=== PATIENT | female | born 1950 | race Caucasian/White ===

== ENCOUNTER 2017-06-05 13:24 | Emergency (ER) | payer MEDICARE, SELFPAY ==
[2017-06-05 13:25] VITALS: BP 161/86; PULSE 89; RESP 16; TEMP 36.7; O2SAT 96; BMI 40.9
--- NOTE | 2017-06-05 14:06 | ED.VISSUMM ---
- ER Visit Summary Date of Service: 06/05/17 Chief Complaint: Upper quadrant and lateral abdominal pain for months History of Present Illness: The patient is a 67 F had right upper quadrant and lateral abdominal pain since . She denies any falls or trauma. She has had an extensive outpatient workup with [facility] in which she states the right upper quadrant ultrasound, CAT scan and HIDA scan all were negative. She does not have any food intolerances. She has not been having any nausea, vomiting or diarrhea. No dysuria hematuria. No fever or drastic weight change. No chest pain. No shortness of breath. No pleurisy. She has not seen any rashes. The pain is constant the last 2+ months. Nothing specifically makes it better or worse. No change with movement. Physical Examination: Appearing older female. Vital signs are stable afebrile. Pulse ox 96% on room air no signs of hypoxia. HEENT exam unremarkable. Neck nontender. No lymphadenopathy. Lungs clear to auscultation bilaterally. Heart regular rate and rhythm no murmur. Abdomen is soft nondistended normal bowel sounds no peritoneal signs. She has mild tenderness to the right lateral abdomen. There is no ecchymosis or bruising. No rash. No shingles. No hernias or masses. The ribs specifically are not tender. There is no Gann sign. There is no McBurney's point tenderness. Normal bowel sounds. No signs of junction. She is moving all 4 extremities. Neurovascular intact. Calves without edema or cords. Neurologically she is awake alert with no focal deficits. Back exam is nontender. Test Results: Normal. White count of 9. H&H 12 and 38. BMP unremarkable. Gap of 10. Normal creatinine. Liver enzymes normal. Chest x-ray shows no acute abnormality normal cardiac silhouette. No rib injuries. No pleural effusions. Emergency Department Course and Treatment: Exam at 1529 shows no change in no acute abnormality. Patient I discussed all her test. She will be discharged home for further evaluation. Medication Treatment Plan: [] Disposition: discharge Impression: Acute on chronic right sided flank pain of uncertain etiology This note was generated with [employer] dictation software. It may contain incorrect words, spelling, and punctuation that were not noted in review of the chart prior to signing ED Disposition - Plan for ED Patient: Chief Complaint: Abd Pain Referrals: Man Garcia [Primary Care Provider] -
[2017-06-05 14:25] LABS: Absolute Lymphocyte Count 2.89 X10^3/ul (0.83-4.51); Absolute Neutrophil Count 5.3 X10^3/uL (2.0-7.7); Basophil# 0.03 X10^3/uL; Basophil% 0.3 % (0-1); Eosinophil# 0.25 X10^3/uL; Eosinophils% 2.7 % (0-5); Hematocrit 38.3 % (37-47); Hemoglobin 12.4 g/dl (12.0-15.0); Lymphocyte # 2.89 X10^3/ul (4.0); Lymphocyte % 31.2 % (19-41); Mean Corp Hgb Conc 32.4 g/gl (32-36); Mean Corpuscular Hgb 30.8 pg (27.0-32.0); Mean Corpuscular Volume 95.3 fL (81-99); Mean Platelet Vol. 10.8 fl (6.2-12.0); Monocyte# 0.78 X10^3/uL; Monocyte% 8.4 % (0-10); Neutrophil # 5.31 X10^3/uL (2.7-7.7); Neutrophil % 57.3 % (47-70); POSITIVE COUNT NO; POSITIVE DIFFERENTIAL NO; POSITIVE MORPHOLOGY NO; Platelet Count 258 K/mm3 (150-450); RBC Distribution Width CV 13.5 % (11.6-14.6); RBC Distribution Width SD 46.7 fl (35.1-43.9); Red Blood Count 4.02 M/mm3 (4.2-5.4); White Blood Count 9.3 K/mm3 (4.4-11.0)
--- NOTE | 2017-06-05 14:25 | RAD_ITS ---
STUDY: X-RAY CHEST REASON FOR EXAM: Female, 67 years old. Right lower chest pain. TECHNIQUE: PA and lateral views of the chest. COMPARISON: None. FINDINGS: The patient is status post left mastectomy and left axillary node dissection. The lungs are clear and expanded. Scattered calcified granulomas. There is no demonstrated pleural abnormality. Normal size heart. Normal mediastinum and kylah. Normal visualized pulmonary arteries. There is atherosclerotic tortuosity of the aortic arch and descending thoracic aorta. There are diffuse degenerative changes of the visualized thoracic spine. Normal visualized ribs, clavicles, and shoulders. There is no demonstrated abnormality of the visualized soft tissue structures of the upper abdomen. RAD/Chest PA and Lateral IMPRESSION: No acute abnormality is seen. Electronically Signed: Jones Iqbal MD at 14:53 EST Tel [phone], Service support ,
[2017-06-05 14:40] LABS: AST(SGOT) 22 U/L (15-37); Alanine Aminotransfer ALT/SGPT 20 U/L (13-56); Albumin, Serum 3.2 g/dL (3.2-5.0); Alkaline Phosphatase 68 U/L (45-117); Anion Gap 10 (5-15); BUN 12 mg/dL (7-18); BUN/Creat Ratio 15.5 RATIO (10-20); Bilirubin, Direct 0.06 mg/dL (0.00-0.30); Calcium,Total 8.7 mg/dL (8.5-10.1); Chloride 101 mmol/L (98-107); Creatinine, Serum 0.77 mg/dL (0.55-1.02); EST Glomerular Filtration Rate 80 mL/min (>60); Est Glom Filt Rate - Afr Amer 96 mL/min (>60); Estimated Creatinine Clearance 102.23 ml/min; Globulin 4.5 g/dL (2.2-4.2); Glucose 203 mg/dL (74-106); Potassium 4.2 mmol/L (3.5-5.1); Protein, Total 7.7 g/dL (6.4-8.2); Sodium Level 137 mmol/L (136-145)
--- NOTE | 2017-06-05 15:34 | ED.DEP ---
ED Disposition - Plan for ED Patient: Disposition: Home or Assisted Living Chief Complaint: Abd Pain Instructions: ED Abdominal Pain Unkn Cause Prescriptions: Carbamazepine [Tegretol] 100 mg PO BIDCM #60 tab Referrals: Man Garcia [Primary Care Provider] - As soon as possible Additional Instructions: No specific cause for your pain. Your workup today was normal. This may be secondary to nerve pain.
[2017-06-05 15:57] VITALS: BP 136/74; PULSE 79; RESP 20; O2SAT 100
--- NOTE | 2017-06-05 15:59 | ED.RN ---
THIS NURSE REVIEWED D/C INSTRUCTIONS WITH PT. PT VERBALIZED UNDERSTANDING OF INSTRUCTIONS. IV D/C. IV CATHETER INTACT. PT TOLERATED WELL. PT DENIES FURTHER NEEDS OR QUESTIONS AT THIS TIME. PT AMBULATES FROM ROOM ON OWN WITHOUT ASSISTANCE FROM STAFF
== END 2017-06-05 16:00 | disposition home or self-care (01) ==
PROVIDERS: Emergency Provider Emergency Medicine; Family Provider Family Medicine; PCP Family Medicine
DX: R10.11 Right upper quadrant pain (principal); G89.29 Other chronic pain; R11.0 Nausea; R19.7 Diarrhea, unspecified; E11.9 Type 2 diabetes mellitus without complications; I10 Essential (primary) hypertension; Z85.3 Personal history of malignant neoplasm of breast; Z90.710 Acquired absence of both cervix and uterus; Z90.12 Acquired absence of left breast and nipple; Z79.84 Long term (current) use of oral hypoglycemic drugs; Z79.899 Other long term (current) drug therapy
CPT/HCPCS: 71046; 80048; 80076; 85025; 99283; J7030; A4216

== ENCOUNTER → 2020-11-10 09:04 | Outpatient (CLI) | payer MEDICARE, SELFPAY ==
[2020-11-06 05:56] VITALS: BMI 41.9
--- NOTE | 2020-11-10 15:26 | PFTCOMP ---
COMPLETE PULMONARY FUNCTION TEST INTERPRETATION Brief HPI: Patient is a 70 year old female, currently under the care of myself, who presents to [facility] for complete pulmonary function tests secondary to diagnosis of lung nodule. Respiratory therapist reports good effort and reproducible results. Interpretation: Forced expiration spirometry shows a mild large airways obstructive ventilatory defect with an FEV1 of 89% predicted. There is a significant bronchodilator response in FEV1 by strict ATS criteria. Spirograms are of good quality and plateau slowly, indicating slowly emptying areas of the lungs. The respiratory flow volume loop shows decreased expiratory flow rates at high lung volumes consistent with small airways obstruction. Lung volumes by body plethysmography show a normal total lung capacity at 3.74 L, 98% predicted. All other lung volumes are within normal limits. Diffusion capacity by carbon monoxide is normal at 81% predicted. The airway resistance is normal. No previous pulmonary function tests were available for review. Impression: Fully reversible mild large airways obstructive ventilatory defect in a pattern consistent with asthma
== END ==
PROVIDERS: PCP Family Medicine; Referring Provider Internal Medicine Critical Care Medicine; Visit Provider Internal Medicine Critical Care Medicine
DX: R91.1 Solitary pulmonary nodule (principal)
CPT/HCPCS: 94060; 94726; 94729

== ENCOUNTER → 2021-01-24 06:50 | Outpatient (CLI) | payer MEDICARE, SELFPAY ==
--- NOTE | 2021-01-24 06:57 | CT_ITS ---
INDICATION: RLL lung nodule EXAMINATION: CT CHEST WITHOUT CONTRAST - CT Chest W/O Contrast Injection TECHNIQUE: Helically acquired images were obtained of the chest. A radiation dose optimization technique was used for this scan. IV Contrast dosage and agent: None. COMPARISON: Chest x-ray obtained 06/05/2017. FINDINGS: Left mastectomy, surgical clips visualized in the left axillary region. LUNGS, PLEURA AND LARGE AIRWAYS: There is a 12 mm well-circumscribed mass visualized in the medial aspect of the right lower lobe best seen on axial series 4 image 76, no prior studies are available for comparison. A 3 mm subpleural nodular density is visualized in the lateral aspect of the right lower lobe seen on axial series 4 image 63. No evidence of endotracheal or endobronchial lesions are seen. Mild bronchial wall thickening is visualized, no evidence of bronchiectasis is seen. The bronchovascular interstitial lung markings otherwise unremarkable, no evidence of focal infiltrate or consolidation is seen. THYROID: No thyroid lesions. HEART AND PERICARDIUM: Heart size is normal. No pericardial effusion. VESSELS: Thoracic aorta is not dilated. MEDIASTINUM AND VIKASH: No significant mediastinal or hilar adenopathy. Esophagus is unremarkable. No hiatal hernia. UPPER ABDOMEN: No acute pathology. BONES: No suspicious lytic or blastic abnormality. Degenerative bone changes, depression of the superior endplate of the L1 vertebral body. CT/Chest without Contrast IMPRESSION: 12 mm well-circumscribed mass visualized in the medial aspect of the right lower lobe best seen on axial series 4 image 76, no prior studies are available for comparison. 3 mm subpleural nodular density is visualized in the lateral aspect of the right lower lobe. Electronically Signed: Archie Gupta MD at 10:32 EDT Tel , Service support ,
== END ==
PROVIDERS: PCP Family Medicine; Referring Provider Internal Medicine Critical Care Medicine; Visit Provider Internal Medicine Critical Care Medicine
DX: R91.1 Solitary pulmonary nodule (principal)
CPT/HCPCS: 71250

== ENCOUNTER 2021-05-15 16:59 | Outpatient (CLI) | payer MEDICARE, SELFPAY ==
--- NOTE | 2021-05-15 17:13 | CT_ITS ---
STUDY: CT Chest W/O Contrast Injection 05/15/2021 5:46 PM REASON FOR EXAM: Female, 71 years old. Follow up RLL nodule Individualized dose optimization techniques were used for this CT. TECHNIQUE: Transaxial imaging was performed withoutIV contrast material. COMPARISON: Jan 24 2021 7:01am FINDINGS: There are degenerative changes of the shoulders. There is no pneumothorax. There is no demonstrated pleural abnormality. There are multiple metallic clips in the left axilla. This is consistent for a prior axillary dissection. There are mastectomy changes noted. There is a 10 x 11 mm right medial lower lobe nodule. SE:2 IM: 100. 2.5mm subpleural nodular density is visualized in the lateral aspect of the right lower lobe. SE:4 IM: 70. There are calcifications of the coronary arteries. Normal mediastinum. Normal hilar regions. Normal pulmonary arteries. There is atherosclerotic calcification of the aortic arch with tortuosity and elongation of the aortic arch and descending thoracic aorta. There are multi-level degenerative changes of the thoracic spine. The gallbladder is surgically absent. CT/Chest without Contrast IMPRESSION: Stable right pulmonary nodules. ACR Lung CT Screening Reporting T Data System (Lung-RADS) score: 2S - Benign Appearance or Behavior. Additional clinically significant or potentially clinically significant findings are described. Recommend continued annual screening with low-dose CT (LDCT) in 12 months. Electronically Signed: Viraj Godinez MD at 17:50 EST ,
== END 2021-05-15 23:59 | disposition short-term general hospital (02) ==
PROVIDERS: PCP Family Medicine; Referring Provider Internal Medicine Critical Care Medicine; Visit Provider Internal Medicine Critical Care Medicine
DX: R91.1 Solitary pulmonary nodule (principal)
CPT/HCPCS: 71250

== ENCOUNTER → 2021-10-19 | Outpatient (CLI) | payer MEDICARE, SELFPAY ==
--- NOTE | 2021-10-19 18:41 | CT_ITS ---
STUDY: CT Chest W/O Contrast Injection 10/19/2021 9:24 PM REASON FOR EXAM: Female, 71 years old. Follow lung nodule per Fleischner guidelines Individualized dose optimization techniques were used for this CT. TECHNIQUE: Transaxial imaging was performed withoutIV contrast material. COMPARISON: 05.15.21 FINDINGS: There are degenerative changes of the shoulders. There is no pneumothorax. There is no demonstrated pleural abnormality. There is a 2.9 mm right lower lobe nodule. SE: 4 IM: 58. There is a 10 x 11 mm right medial lower lobe nodule. SE:4 IM: 74. There are multiple metallic clips in the left axilla. This is consistent for a prior axillary dissection. There are mastectomy changes noted. There are calcifications of the coronary arteries. Stable compression formation midthoracic spine. Normal mediastinum. Normal hilar regions. Normal pulmonary arteries. There is atherosclerotic calcification of the aortic arch with tortuosity and elongation of the aortic arch and descending thoracic aorta. There are multi-level degenerative changes of the thoracic spine. The gallbladder is surgically absent. CT/Chest without Contrast IMPRESSION: Stable right pulmonary nodules. ACR Lung CT Screening Reporting T Data System (Lung-RADS) score: 2S - Benign Appearance or Behavior. Additional clinically significant or potentially clinically significant findings are described. Recommend continued annual screening with low-dose CT (LDCT) in 12 months. Electronically Signed: Viraj Godinez MD at 21:36 EDT ,
== END | disposition home or self-care (01) ==
LOC: CT 18:39
PROVIDERS: PCP Family Medicine; Referring Provider Nurse Practitioner Acute Care; Visit Provider Nurse Practitioner Acute Care
DX: R91.1 Solitary pulmonary nodule (principal)
CPT/HCPCS: 71250

== ENCOUNTER → 2022-09-20 | Outpatient (CLI) | payer MEDICARE, SELFPAY ==
--- NOTE | 2022-09-20 12:44 | CT_ITS ---
STUDY: CT CHEST WITHOUT CONTRAST REASON FOR EXAM: Female, [address] for lung nodule RADIATION DOSAGE (If Supplied By Facility): CTDIvol = ( 13.64 ) mGy, DLP = ( 480.60 ) mGycm TECHNIQUE: Transaxial imaging was performed without the administration of intravenous contrast material. Multiplanar coronal and sagittal images were reformatted. Individualized dose optimization techniques were used for this CT. COMPARISON: Comparison is made with prior study dated October 19, 2021. FINDINGS: CHEST The patient is status post left mastectomy. Surgical clips are seen in the left axillary region. Stable 1.2 cm x 1.2 cm well-defined nodule in the medial aspect of the right lower lobe as seen on axial image #75. Stable 2.9 mm noncalcified nodule in the right lower lobe as seen on image #56. There is no demonstrated pleural abnormality. There are calcifications of the coronary arteries. There are multiple small lymph nodes within the mediastinum, which are normal in size and morphology most compatible with reactive lymph hyperplasia. Normal hilar regions. Normal unenhanced pulmonary arteries. There is atherosclerotic calcification of the aortic arch with tortuosity and elongation of the aortic arch and descending thoracic aorta. There are multi-level degenerative changes of the thoracic spine. There is no demonstrated abnormality of the visualized upper abdomen. CT/Chest without Contrast IMPRESSION: Stable examination. Twelve-month follow-up is recommended. Electronically Signed: Jones Iqbal MD at 15:12 EDT ,
== END | disposition home or self-care (01) ==
LOC: CT 12:42
PROVIDERS: PCP Family Medicine; Referring Provider Internal Medicine Critical Care Medicine; Visit Provider Internal Medicine Critical Care Medicine
DX: R91.1 Solitary pulmonary nodule (principal)
CPT/HCPCS: 71250